=== PATIENT | male | born 1980 | race Two or more races ===

== ENCOUNTER 2016-12-20 12:19 | Emergency (ER) | payer MEDICAID ==
[2016-12-20 12:31] VITALS: BP 134/83; PULSE 93; RESP 16; TEMP 98.1; O2SAT 98
[2016-12-20] MEDS ORDERED: LIDOCAINE 5% 1 EA PATCH TD ONE (12:42)
[2016-12-20] MEDS ORDERED: IBUPROFEN 600 MG TAB PO ONE (12:42)
[2016-12-20] MEDS ORDERED: ACETAMINOPHEN 500 MG TAB PO ONE (12:42)
--- NOTE | 2016-12-20 12:45 | EDPHY ---
H & P Time Seen by Provider: 12/20/16 12:32 HPI/ROS: CHIEF COMPLAINT: Back pain HISTORY OF PRESENT ILLNESS: 36-year-old male states that 2 days ago after moving furniture he developed low back discomfort. Pain is described as midline and slightly worse on the left. It is on the lower back. No radiation into the buttocks. No weakness in the legs. No numbness or tingling. No rash. No anterior abdominal pain, chest pain, or extremity pain. No urinary complaints. No prior history of previous episodes of back discomfort. No fever, chills, chest pain, shortness of breath, palpitations, vomiting, diarrhea, urinary complaints, headache, lightheadedness. REVIEW OF SYSTEMS: Aside from elements discussed in the HPI, a comprehensive 10-point review of systems was reviewed and is negative. PAST MEDICAL HISTORY: Patient denies. SOCIAL HISTORY: Nonsmoker. No IV drug use. General appearance: Alert, conversant. Indicates the area pain is on the low back and midline sacral area. Focused examination of back: No trauma is noted. Very mild tenderness to palpation over the upper sacrum. No tenderness to palpation along the lumbar spine. Paraspinous muscle spasm is present at the levels of L4-L5. Neurological exam: Straight leg raise test is negative bilaterally. Hip flexion, knee extension, knee flexion, dorsiflexion and plantar flexion are 5/ 5 bilaterally. EHL 5 over 5. Sensation is intact to light touch throughout. 2 + knee and ankle jerk bilaterally. Vascular exam: Dorsalis pedis and posterior tibial pulses are intact. Brisk capillary refill. Smoking Status: Heavy smoker Constitutional: Initial Vital Signs Temperature (C) 36.7 C 12/20/16 12:20 Heart Rate 93 12/20/16 12:20 Respiratory Rate 16 12/20/16 12:20 Blood Pressure 134/83 H 12/20/16 12:20 O2 Sat (%) 98 12/20/16 12:20 O2 Delivery Mode Room Air Allergies/Adverse Reactions: No Known Allergies Allergy (Verified 12/20/16 12:35) Home Medications: Medication Instructions Recorded Cephalexin [Keflex (RX)] 500 mg PO TID #30 cap 02/19/16 oxyCODONE IR [Oxycodone Ir (*)] 5 mg PO Q4-6PRN PRN #20 tab 02/19/16 Cyclobenzaprine [Flexeril 10 MG 10 mg PO TID PRN #20 tab 12/20/16 (RX)] methylPREDNISolone [Medrol Dose 4 mg PO DAILY #1 each 12/20/16 Miguel] Medical Decision Making ED Course/Re-evaluation: 36-year-old male presenting with low back pain which is midline, slightly worse on the left, and the low back. He has no radicular symptoms. No concerning history of fevers, preceding infections, or IV drug use. No history or symptoms of weakness, nausea/ vomiting, numbness or tingling, or fever. No radicular symptoms are present. Patient was treated with ibuprofen and Tylenol. He was offered IM injection of ketorolac but declined. Lidocaine patch was placed. Patient was discharged in improved condition with Medrol Dosepak, instructions regarding lidocaine patch, instructions regarding regular uses of nonsteroidals. Differential Diagnosis: After history was obtained and physical exam performed, the differential for back pain was considered including but not limited to muscular pain, herniated disc, spine fracture, intra-abdominal causes, and urinary tract infection. - Data Points Medications Given: Discontinued Medications Acetaminophen (Tylenol) 1,000 mg PO EDNOW ONE Stop: 12/20/16 12:43 Last Admin: 12/20/16 12:50 Dose: 1,000 mg Ibuprofen (Motrin) 600 mg PO EDNOW ONE Stop: 12/20/16 12:43 Last Admin: 12/20/16 12:50 Dose: 600 mg Lidocaine (Lidoderm 5%) 1 ea TD EDNOW ONE Stop: 12/20/16 12:43 Last Admin: 12/20/16 12:50 Dose: 1 ea Departure - Departure Disposition: Home, Routine, Self-Care Instructions: Low Back Strain (ED), Acute Low Back Pain (ED) Additional Instructions: Musculoskeletal pain is often treated with anti-inflammatories, muscle relaxants , and pain medications. 1. I recommend Ibuprofen (Motrin, Advil) or Naproxen Sodium (Aleve) for pain and anti-inflammatory effects. You may take either one, but do not take both. Your dose is: Ibuprofen 600 mg every 6-8 hours with food. OR Naproxen Sodium (Aleve) 220 mg every 12 hours. You have also been given a prescription for a Medrol Dosepak to use as directed to treat inflammation. Please begin taking this tomorrow. 2. For muscle relaxation, you been given a prescription of Flexeril. Please take this as directed. It may make you sleepy. 3. For pain relief, I suggest high-dose Tylenol (650mg-1000mg of Tylenol) up to 3 times a day. Not exceed 3000 mg in a 24 hour period. I also suggest lidocaine patches. 4% lidocaine patches are available over-the- counter. Apply ice for 20-30 minutes every 2-3 hours for the next 48 hours. After 48 hours, a heating pad or hot tub may feel better. Please follow up with your primary care physician if you're not improving as expected in the next several days. Consider physical therapy or chiropractic followup for persistent discomfort. Return to the emergency department if you experience significantly worsening pain, pain radiating into the legs, weakness, numbness or tingling, difficulties with bowel or bladder, fever, nausea, vomiting, or other concerns. Referrals: NONE *PRIMARY CARE P,. [Primary Care Provider] - As per Instructions Kamala Newton MD [Medical Doctor] - As per Instructions (Follow up with Dr. Newton, family physician, if you are not improving as expected.) Prescriptions: Cyclobenzaprine [Flexeril 10 MG (RX)] 10 mg PO TID PRN #20 tab PRN Reason: Muscle Spasms methylPREDNISolone [Medrol Dose Miguel] 4 mg PO DAILY #1 each
[2016-12-20] MEDS ORDERED: PATCH REMOVAL 1 EA PATCH TD SCH (21:00)
== END 2016-12-20 13:00 | disposition home or self-care (01) ==
LOC: CED 12:19
DX: M54.5 Low back pain (principal); F17.200 Nicotine dependence, unspecified, uncomplicated